=== PATIENT | female | born 1970 | race Caucasian/White ===

== ENCOUNTER 2017-04-27 19:12 | Emergency (ER) | payer SELFPAY ==
[~2017-04-27 19:12] MED LIST: ACETAMINOPHEN PO; CLEOCIN HCL150 MG PO; FLEXERIL10 MG PO; IBUPROFEN800 MG PO; NO MEDICATIONS; ORTHO EVRA1 PATCH.WK TOP
[2017-04-27] MEDS ORDERED: ADVIL200 M3 (19:29)
[2017-04-27] MEDS ORDERED: CLINDAMYCIN HC300 MG (19:30)
== END 2017-04-27 20:14 | disposition home or self-care (01) ==
LOC: SED 19:12
DX: K08.89 Other specified disorders of teeth and supporting structures (principal); R03.0 Elevated blood-pressure reading, without diagnosis of hypertension; Z88.2 Allergy status to sulfonamides
CPT/HCPCS: 99282